=== PATIENT | female | born 1950 | race Caucasian/White ===

== ENCOUNTER 2017-10-10 12:29 | Observation (INO) | payer OTHER ==
[2017-10-10 12:34] VITALS: BMI 28.3
[2017-10-10] MEDS ORDERED: ONDANSETRON 4 MG/2 ML VIAL ONE (12:42)
[2017-10-10] MEDS ORDERED: SODIUM CHLORIDE 0.9% 1000 ML INFUS.BAG IV ONE ×2 (12:46→13:55)
[2017-10-10] MEDS ORDERED: ONDANSETRON 4 MG/2 ML VIAL IVPUSH ONE (12:46)
--- NOTE | 2017-10-10 13:12 | PDOC ---
History of Present Illness - General Chief Complaint: Nausea/Vomiting Stated Complaint: NAUSEA/VOMITING Time Seen by Provider: 10/10/17 12:32 History Source: Patient Exam Limitations: No Limitations - History of Present Illness Initial Comments: 10/10/17 13:04 [id number] with a history of hypertension known meningioma which has been stable for the last 3 years and migraines here today complaining of headache and persistent nausea and vomiting. Patient states that her headache started yesterday she was seen in urgent care last PM was given Toradol for her pain since then has had some persistent vomiting with mild resolution of her headache. Denies any fevers but may have had chills yesterday. 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 Past History - Past Medical History Allergies/Adverse Reactions: Allergies Allergy/AdvReac Type Severity Reaction Status Date / Time No Known Allergies Allergy Verified 10/10/17 12:30 Home Medications: Ambulatory Orders Metoprolol Succinate [Toprol Xl] 100 mg PO DAILY 10/10/17 COPD: No HTN: Yes - Suicide/Smoking/Psychosocial Hx Smoking History: Never smoked Hx Alcohol Use: No Drug/Substance Use Hx: No Substance Use Type: None Review of Systems - Review of Systems Constitutional: Yes: Chills. No: Diaphoresis HEENTM: No: Eye Pain Respiratory: No: Orthopnea, Shortness of Breath Cardiac (ROS): No: Chest Pain, Edema Musculoskeletal: No: Back Pain, Gout Neurological: Yes: Headache All Other Systems: Reviewed and Negative *Physical Exam - Vital Signs Last Vital Signs Temp Pulse Resp BP Pulse Ox 99.0 F 118 H 18 132/92 99 10/10/17 12:30 10/10/17 12:30 10/10/17 12:30 10/10/17 12:30 10/10/17 12:30 - Physical Exam General Appearance: Yes: Nourished Respiratory/Chest: positive: Lungs Clear, Normal Breath Sounds Cardiovascular: positive: Regular Rhythm, Regular Rate, S1, S2. negative: Edema Musculoskeletal: positive: Normal Inspection Extremity: positive: Normal Capillary Refill, Normal Inspection Integumentary: positive: Normal Color, Dry, Warm Neurologic: positive: graphic editor II-XII NML intact (he was using as a radiology with a call), Fully Oriented, Alert, Normal Mood/Affect, Motor Strength 09/30 ED Treatment Course - LABORATORY CBC & Chemistry Diagram: 10/10/17 12:46 10/10/17 12:51 - Medications Given in the ED: ED Medications Discontinued Medications Generic Name Dose Route Start Last Admin Trade Name Gabino PRN Reason Stop Dose Admin Ondansetron HCl 4 mg 10/10/17 12:46 10/10/17 12:51 Zofran Injection IVPUSH 10/10/17 12:47 4 mg ONCE ONE Administration Sodium Chloride 1,000 ml 10/10/17 12:46 10/10/17 12:51 Normal Saline - IV 10/10/17 12:47 1,000 ml ONCE ONE Administration Medical Decision Making - Medical Decision Making 10/10/17 13:19 67-year-old female history of migraines, meningioma, and hypertension here with headache which has resolved and persistent vomiting. Differential includes electrolyte abnormalities, persistent migrainous symptoms, dehydration, hyponatremia, infection such as UTI, viral gastritis patient denies vertigo symptoms and has a nontender abdomen on exam plan D had due to history of meningioma labs UA we'll treat with IV hydration and antiemetics and pain medication as needed 10/10/17 15:12 d/w with pt pcp dr. smith [phone]. no known h/o hyponatremia, usually around 141 or 142. no new medication. *DC/Admit/Observation/Transfer Diagnosis at time of Disposition: Hyponatremia - Discharge Dispostion Condition at time of disposition: Stable Decision to Admit order: Yes - Referrals Referrals: Parish Smith [Primary Care Provider] - - Patient Instructions - Post Discharge Activity
[2017-10-10 13:27] LABS: BASO % 1.7 % (0-2.0); EOS % 0.2 % (0-4.5); HEMATOCRIT 45.9 % (32.4-45.2); HEMOGLOBIN 16.2 GM/dl (10.7-15.3); MCH 31.1 pg (25.7-33.7); MCHC 35.4 g/dl (32.0-36.0); MEAN CELL VOLUME 87.9 fl (80-96); MEAN PLT VOLUME 10.5 fl (7.5-11.1); MONO % 6.4 % (3.8-10.2); NEUT % 76.7 % (42.8-82.8); PLATELET COUNT 232 K/MM3 (134-434); RBC 5.22 M/mm3 (3.60-5.2); RDW 12.9 % (11.6-15.6); WHITE BLOOD COUNT 11.5 K/mm3 (4.0-10.8)
[2017-10-10] MEDS ORDERED: FAMOTIDINE IV 20 MG/12 ML VIAL IVPUSH ONE (13:32)
[2017-10-10] MEDS ORDERED: LIDOCAINE VISCOUS 2% ORAL/TOP 20 ML UNIT-DOSE CUP MM ONE (13:33)
[2017-10-10] MEDS ORDERED: MAG HYDROX/AL HYDROX/SIMETH 30 ML UNIT-DOSE CUP PO ONE (13:33)
[2017-10-10] MEDS ORDERED: FAMOTIDINE 20 MG/50 ML IVPB 20 MG/50 ML MG IVPB ONE ×2 (13:34→20:33)
[2017-10-10] MEDS ORDERED: MAG HYDROX/AL HYDROX/SIMETH 30 ML UNIT-DOSE CUP ONE (13:37)
[2017-10-10] MEDS ORDERED: LIDOCAINE VISCOUS 2% ORAL/TOP 20 ML UNIT-DOSE CUP ONE (13:37)
[2017-10-10 13:43] LABS: ALBUMIN 4.8 g/dl (3.5-5.0); ALK PHOS 87 U/L (32-92); ANION GAP 8 (8-16); BILIRUBIN,TOTAL 0.9 mg/dl (0.2-1.0); BLOOD UREA NITROGEN 26 mg/dl (7-18); CALCIUM 10.8 mg/dl (8.4-10.2); CHLORIDE 105 mmol/L (98-107); CO2 16 mmol/L (22-28); CREATININE 0.9 mg/dl (0.6-1.3); GLUCOSE,RANDOM 135 mg/dl (74-106); POTASSIUM 4.2 mmol/L (3.5-5.1); SGOT/AST 75 U/L (10-42); SGPT/ALT 56 U/L (10-40); SODIUM 129 mmol/L (136-145); TOT PROT 8.5 g/dl (6.4-8.3)
[2017-10-10 14:23] LABS: LIPASE 152 U/L (73-393)
[2017-10-10] MEDS ORDERED: METOCLOPRAMIDE HCL INJECTION 10 MG/2 ML VIAL IVPUSH ONE (14:51)
[2017-10-10 16:44] LABS: URINE APPEARANCE Clear; URINE BILIRUBIN 2+ (NEGATIVE); URINE GLUCOSE (UA) Negative (NEGATIVE); URINE KETONE 2+ (NEGATIVE); URINE LEUK ESTERASE Negative (NEGATIVE); URINE NITRITE Negative (NEGATIVE); URINE UROBILINOGEN 0.2 (0.2-1.0)
[2017-10-10 16:46] LABS: URINE COLOR YELLOW; URINE PROTEIN 2+ (NEGATIVE)
[2017-10-10 17:38] LABS: EPI CELLS FEW /HPF; URINE BACTERIA FEW /hpf (NEGATIVE)
[2017-10-10 20:26] LABS: ANION GAP 2 (8-16); BLOOD UREA NITROGEN 24 mg/dl (7-18); CALCIUM 9.2 mg/dl (8.4-10.2); CHLORIDE 112 mmol/L (98-107); CO2 18 mmol/L (22-28); GLUCOSE,RANDOM 104 mg/dl (74-106); POTASSIUM 3.3 mmol/L (3.5-5.1); SODIUM 132 mmol/L (136-145)
[2017-10-10 20:38] LABS: CREATININE < 0.8 mg/dl (0.6-1.3)
--- NOTE | 2017-10-10 20:39 | HP ---
CHIEF COMPLAINT: Migraine Headache, Vomiting PCP: Dr. Espinosa ([phone]) HISTORY OF PRESENT ILLNESS: 67 y/o woman with a PMH of HTN, Migraines, Meningoma. Who presents to the ED with headache and intractable vomiting. Patient was seen in Urgent Care for same given Toradol with some relief. Patient reports taking Ergot and Firocet without relief. Patient reports not having a Migraine for 6-7 yrs ago. She reports having an Aura, floating objects, squiggly shapes with her vision. Patient reports the ORTEGA has resolved, but still feels nauseous and has severe heartburn. Patient also reports having 2 episodes of palpitations in the morning , then 4pm evening resolved. Patient denies numbness, tingling, slurred speech, facial droop. Patient denies fever, chills, cough, SOB, CP, diarrhea, dysuria. ER course was notable for: (1) Head CT- neg ICH, mass or lesion (2) NA 129~ 132 after 2LNS (3) EKG- 88bpm, left anterior fasculiar block QT/QTc 348/445 Recent Travel: None PAST MEDICAL HISTORY: See HPI PAST SURGICAL HISTORY: Breast Biopsy (Benign) Bunionectomy R-TKR R- Hand Sx Social History: Smoking: Former, quit > 20yrs Alcohol: None Drugs: None Resides at [facility] Family History: Father: Hodgkin Lymphoma, Alcoholism Mother: Myasthenia, Emphysema Maternal Grandmother: Cirrhosis Paternal Grandmother: [place] Paternal Grandfather: Stroke Daughter- Braca Gene- Braca Score 2 Allergies No Known Allergies Allergy (Verified 10/10/17 12:30) HOME MEDICATIONS: Home Medications Medication Instructions Recorded Metoprolol Succinate [Toprol Xl] 100 mg PO DAILY 10/10/17 REVIEW OF SYSTEMS CONSTITUTIONAL: Absent: fever, chills, diaphoresis, generalized malaise, fatigue, weight change , change in appetite HEENT: Absent: rhinorrhea, nasal congestion, throat pain, throat swelling, difficulty swallowing, mouth swelling, ear pain, eye pain, visual changes CARDIOVASCULAR: palpitations, irregular heart rate, lightheadedness Absent: chest pain, syncope, palpitations, irregular heart rate, lightheadedness , peripheral edema RESPIRATORY: Absent: cough, shortness of breath, dyspnea with exertion, orthopnea, wheezing, stridor, hemoptysis GASTROINTESTINAL: nausea, vomiting Absent: abdominal pain, abdominal distension, diarrhea, constipation, melena, hematochezia GENITOURINARY: Absent: dysuria, frequency, urgency, hesitancy, hematuria, flank pain, genital pain MUSCULOSKELETAL: Absent: myalgia, arthralgia, joint swelling, back pain, neck pain SKIN: Absent: rash, itching, pallor HEMATOLOGIC/IMMUNOLOGIC: Absent: easy bleeding, easy bruising, lymphadenopathy, frequent infections ENDOCRINE: Absent: unexplained weight gain, unexplained weight loss, heat intolerance, cold intolerance NEUROLOGIC: headache, photophobia Absent: focal weakness or paresthesias, dizziness, unsteady gait, seizure, mental status changes, bladder or bowel incontinence PSYCHIATRIC: Absent: anxiety, depression, suicidal or homicidal ideation, hallucinations. PHYSICAL EXAMINATION Vital Signs - 24 hr 10/10/17 10/10/17 10/10/17 12:30 14:31 16:16 Temperature 99.0 F 98.2 F Pulse Rate 118 H 74 Pulse Rate [ 73 Right] Respiratory 18 18 17 Rate Blood Pressure 132/92 122/72 Blood Pressure 159/99 [Right Arm] O2 Sat by Pulse 99 98 100 Oximetry (%) 10/10/17 16:59 Temperature Pulse Rate Pulse Rate [ 78 Right] Respiratory 17 Rate Blood Pressure Blood Pressure 154/92 [Right Arm] O2 Sat by Pulse 100 Oximetry (%) GENERAL: Awake, alert, and fully oriented, in no acute distress. HEAD: Normal with no signs of trauma. EYES: Pupils equal, round and reactive to light, extraocular movements intact, sclera anicteric, conjunctiva clear. No lid lag. EARS, NOSE, THROAT: Ears normal, nares patent, oropharynx clear without exudates. Dry mucous membranes. NECK: Normal range of motion, supple without lymphadenopathy, JVD, or masses. LUNGS: Breath sounds equal, clear to auscultation bilaterally. No wheezes, and no crackles. No accessory muscle use. HEART: Regular rate and rhythm, normal S1 and S2 without murmur, rub or gallop. ABDOMEN: Soft, nontender, not distended, hyperactive bowel sounds, no guarding, no rebound, no masses. No hepatomegaly or splenomegaly. MUSCULOSKELETAL: Normal range of motion at all joints. No bony deformities or tenderness. No CVA tenderness. UPPER EXTREMITIES: 2+ pulses, warm, well-perfused. No cyanosis. No clubbing. No peripheral edema. LOWER EXTREMITIES: 2+ pulses, warm, well-perfused. No calf tenderness. No peripheral edema. NEUROLOGICAL: Cranial nerves II-XII intact. Slurred speech. Gait not observed. PSYCHIATRIC: Cooperative. Good eye contact. Appropriate mood and affect. SKIN: Warm, dry, normal turgor, no rashes or lesions noted, normal capillary refill. Laboratory Results - last 24 hr 10/10/17 10/10/17 10/10/17 12:46 12:51 16:34 WBC 11.5 H RBC 5.22 H Hgb 16.2 H Hct 45.9 H MCV 87.9 MCH 31.1 MCHC 35.4 RDW 12.9 Plt Count 232 MPV 10.5 Neutrophils % 76.7 Lymphocytes % 15.0 Monocytes % 6.4 Eosinophils % 0.2 Basophils % 1.7 Sodium 129 L Potassium 4.2 Chloride 105 Carbon Dioxide 16 L Anion Gap 8 BUN 26 H Creatinine 0.9 Creat Clearance w eGFR > 60 Random Glucose 135 H Calcium 10.8 H Total Bilirubin 0.9 AST 75 H ALT 56 H Alkaline Phosphatase 87 Total Protein 8.5 H Albumin 4.8 Lipase 152 Urine Color Yellow Urine Appearance Clear Urine pH 6.0 Ur Specific [place] >= 1.030 H Urine Protein 2+ H Urine Glucose (UA) Negative Urine Ketones 2+ H Urine Blood 2+ H Urine Nitrite Negative Urine Bilirubin 2+ H Urine Urobilinogen 0.2 Ur Leukocyte Esterase Negative Urine RBC 5-10 Urine WBC 2-5 Ur Epithelial Cells Few Urine Bacteria Few ASSESSMENT/PLAN: 67 y/o woman PMH HTN, Migraine Headaches, Meningoma. Placed in Tele Observation for Hyponatremia, Palpitations, SOB. FEN PO Fluids, NS@30cc/hr (dehydration) Repleted Na Low Na Diet Code Status: Full Code Dispo: Requires Inpatient Care Problem List - Problem (1) Hyponatremia Assessment/Plan: - Likely secondary to volume depletion - 2L NS bolus given in ED - Sodium Deficit 366 meq - Goal Sodium Correction of 6-8meq/24 hrs - Monitor BMP - Monitor vitals - Fall Precautions Code(s): E87.1 - HYPO-OSMOLALITY AND HYPONATREMIA (2) Headache Assessment/Plan: - Likely secondary to Migranes vs Tumor vs Stroke - Cardiac monitoring - Head CT- neg ICH, mass or lesions - Seizure Precautions - Fall precautions - Continue gentle IVF - Orthostatics - Consider neurology Code(s): R51 - HEADACHE (3) Heart palpitations Assessment/Plan: - Likely secondary to Volume Depletion vs Missed Medication vs Infection - EKG- NSR w Left Anterior Fasicular Block - Cardiac Monitoring - Serial Enzymes - Appreciate Cardiology Consult - Echo- LSVF - Lipid Panel Code(s): R00.2 - PALPITATIONS (4) Elevated troponin Assessment/Plan: - Likely secondary to Ischemic demand vs Tachyarrhythmia vs ACS - Cardiac monitoring - Serial Enzymes - Appreciate Cardiology consult - Code(s): R74.8 - ABNORMAL LEVELS OF OTHER SERUM ENZYMES (5) Dizziness Assessment/Plan: - See Above - Orthostatics Code(s): R42 - DIZZINESS AND GIDDINESS (6) Benign meningioma Assessment/Plan: - no acute changes - Continue to monitor and treat with indications as needed Code(s): D32.0 - BENIGN NEOPLASM OF CEREBRAL MENINGES (7) DVT prophylaxis Assessment/Plan: - OB - SCDs - Consider AC if LOS > 48hrs Code(s): ATA0739 - Visit type - Emergency Visit Emergency Visit: Yes ED Registration Date: 10/10/17 Care time: The patient presented to the Emergency Department on the above date and was hospitalized for further evaluation of their emergent condition. - New Patient This patient is new to me today: Yes Date on this admission: 10/10/17 - Critical Care Critical Care patient: No Hospitalist Screening - Colonoscopy Questionnaire Colonoscopy Questionnaire: Colonoscopy Questionnaire - Patient: 50 - 75 years old and never had a screening colonoscopy: No History of colon or rectal polyps, or CA: No History of IBD, Crohn's disease or UC: No History of abdominal radiation therapy as a child: No - Relative: 1 with colon or rectal CA, or polyps at age 60 or younger: No Colon or rectal CA diagnosed at age 45 or younger: No Multiple relatives with colon or rectal CA: No - Outcome: Screening Result: Negative Screen
[2017-10-10] MEDS ORDERED: POTASSIUM CHLORIDE TABS 20 MEQ TABLET.ER (FP) PO ONE (21:45)
[2017-10-10] MEDS ORDERED: LIDOCAINE VISCOUS 2% ORAL/TOP 20 ML UNIT-DOSE CUP MM PRN (23:16)
[2017-10-11] MEDS ORDERED: MAG HYDROX/AL HYDROX/SIMETH -MYLANTA- ORAL SUSPENSION PO SCH
[2017-10-11] MEDS ORDERED: MELATONIN 5 MG TABLETS PO ONE (00:03)
[2017-10-11] MEDS ORDERED: MAG HYDROX/AL HYDROX/SIMETH 30 ML UNIT-DOSE CUP PO SCH (00:22)
[2017-10-11] MEDS: MAG HYDROX/AL HYDROX/SIMETH 30 ML UNIT-DOSE CUP PO SCH ×4 (00:29→18:12)
[2017-10-11] MEDS ORDERED: SODIUM CHLORIDE 1,000 ML IV SCH ×2 (02:15→02:19)
[2017-10-11] MEDS ORDERED: ASPIRIN 81 MG CHEWABLE TABLETS PO ONE (05:06)
--- NOTE | 2017-10-11 08:14 | PN ---
Physical Exam: SUBJECTIVE: Patient seen and examined, reports a burning sensation to throat and chest after eating breakfast, does reports palpations at 2200 yesterday evening that resolved spontaneously, patient denies any dizziness or shortness of breath. OBJECTIVE: Patient is a 67 y/o woman with a PMH of HTN, Migraines, Meningoma. Patient was admitted to observation telemetry for emergent condition. Vital Signs Period Temp Pulse Resp BP Sys/Mark Pulse Ox Last 24 Hr 98.2 F-99.1 F 71-118 16-18 122-159/72-99 95-100 GENERAL: The patient is awake, alert, and fully oriented, in no acute distress. HEAD: Normal with no signs of trauma. EYES: PERRL, extraocular movements intact, sclera anicteric, conjunctiva clear. No ptosis. ENT: Ears normal, nares patent, oropharynx clear without exudates, moist mucous membranes. NECK: Trachea midline, full range of motion, supple. LUNGS: Breath sounds equal, clear to auscultation bilaterally, no wheezes, no crackles, no accessory muscle use. HEART: Regular rate and rhythm, S1, S2 without murmur, rub or gallop. ABDOMEN: Soft, nontender, nondistended, normoactive bowel sounds, no guarding, no rebound, no hepatosplenomegaly, no masses. EXTREMITIES: 2+ pulses, warm, well-perfused, no edema. NEUROLOGICAL: Cranial nerves II through XII grossly intact. Normal speech, gait not observed. PSYCH: Normal mood, normal affect. SKIN: Warm, dry, normal turgor, no rashes or lesions noted Laboratory Results - last 24 hr CBC WBC 6.3 K/mm3 (4.0-10.8) D 10/11/17 07:45 RBC 4.49 M/mm3 (3.60-5.2) 10/11/17 07:45 Hgb 13.7 GM/dl (10.7-15.3) D 10/11/17 07:45 Hct 39.8 % (32.4-45.2) 10/11/17 07:45 MCV 88.5 fl (80-96) 10/11/17 07:45 MCH 30.6 pg (25.7-33.7) 10/11/17 07:45 MCHC 34.5 g/dl (32.0-36.0) 10/11/17 07:45 RDW 12.8 % (11.6-15.6) 10/11/17 07:45 Plt Count 155 K/MM3 (134-434) 10/11/17 07:45 MPV 9.6 fl (7.5-11.1) 10/11/17 07:45 Neutrophils % 60.2 % (42.8-82.8) 10/11/17 07:45 Lymphocytes % 27.1 % (8-40) 10/11/17 07:45 Monocytes % 11.0 % (3.8-10.2) H 10/11/17 07:45 Eosinophils % 1.1 % (0-4.5) 10/11/17 07:45 Basophils % 0.6 % (0-2.0) 10/11/17 07:45 CMP Sodium 136 mmol/L (136-145) 10/11/17 07:45 Potassium 3.8 mmol/L (3.5-5.1) 10/11/17 07:45 Chloride 111 mmol/L (98-107) H 10/11/17 07:45 Carbon Dioxide 22 mmol/L (22-28) D 10/11/17 07:45 Anion Gap 3 (8-16) L 10/11/17 07:45 BUN 19 mg/dl (7-18) H D 10/11/17 07:45 Creatinine < 0.8 mg/dl (0.6-1.3) 10/11/17 07:45 Creat Clearance w eGFR > 60 (>60) 10/11/17 07:45 Random Glucose 127 mg/dl (74-106) H D 10/11/17 07:45 Calcium 9.2 mg/dl (8.4-10.2) 10/11/17 07:45 Magnesium 2.0 mg/dL (1.8-2.4) 10/11/17 07:45 Total Bilirubin 1.0 mg/dl (0.2-1.0) 10/11/17 07:45 AST 45 U/L (10-42) H D 10/11/17 07:45 ALT 47 U/L (10-40) H 10/11/17 07:45 Alkaline Phosphatase 62 U/L (32-92) D 10/11/17 07:45 Creatine Kinase 47 IU/L (26-192) 10/11/17 07:45 Troponin I 0.13 ng/ml (0.00-0.06) H 10/11/17 07:45 Total Protein 5.7 g/dl (6.4-8.3) L D 10/11/17 07:45 Albumin 3.3 g/dl (3.5-5.0) L D 10/11/17 07:45 Triglycerides 92 mg/dl (35-160) 10/11/17 07:45 Cholesterol 218 mg/dl 10/11/17 07:45 Total LDL Cholesterol 138 mg/dl 10/11/17 07:45 HDL Cholesterol 62 mg/dl (29-89) 10/11/17 07:45 Lipase 152 U/L (73-393) 10/10/17 12:51 Laboratory Tests 10/10/17 10/11/17 22:50 07:45 Troponin I 0.26 H 0.13 H Active Medications Generic Name Dose Route Start Last Admin Trade Name Freq PRN Reason Stop Dose Admin Al Hydroxide/Mg Hydroxide 30 ml 10/11/17 00:30 10/11/17 06:07 Mylanta Oral Suspension - PO 30 ml Q6HPO ELLIOT Administration Aspirin 81 mg 10/12/17 10:00 Asa - PO DAILY [facility] Sodium Chloride 1,000 mls @ 30 mls/hr 10/11/17 02:19 10/11/17 02:44 Normal Saline - IV 30 mls/hr ASDIR ELLIOT Administration Lidocaine HCl 20 ml 10/10/17 23:16 Xylocaine 2% Viscous Oral - MM Q6HPO PRN ORAL PAIN/M[place]TH [place]ES Metoprolol Succinate 100 mg 10/11/17 10:00 Toprol Xl - PO DAILY ELLIOT imaging ekg 10/10/17: left anterior fasicular block head ct: no acute pathology, left parietal menigoma ASSESSMENT/PLAN: 1) cardiovascular hypertension - continue toprol b/p at goal - pending echo palpation - continous telemetry monitoring, no events noted elevated troponin - 1st troponin 0.26, 2nd troponin 0.13, downtrending, pending 3rd, likely secondary to ischemic demand - appreciate cardiology input 2) neuro migraine - hx of migraine headache, pt denies any headache at this time 3) GI GERD - start protonix with carafate - will require outpatient follow up with GI, pt has never had a colonscopy f/e/n hyponatremia - repeat serum sodium this AM WNL, hyponatremia secondary to volume depletion resolved after IV hydration low sodium diet ppx - protonix - oob dispo: requires telemetry obsv l Visit type - Emergency Visit Emergency Visit: Yes ED Registration Date: 10/10/17 Care time: The patient presented to the Emergency Department on the above date and was hospitalized for further evaluation of their emergent condition. - New Patient This patient is new to me today: Yes Date on this admission: 10/13/17 - Critical Care Critical Care patient: No - Discharge Referral Referred to [facility] No
[2017-10-11 08:37] LABS: BASO % 0.6 % (0-2.0); EOS % 1.1 % (0-4.5); HEMATOCRIT 39.8 % (32.4-45.2); HEMOGLOBIN 13.7 GM/dl (10.7-15.3); LYMPH % 27.1 % (8-40); MCH 30.6 pg (25.7-33.7); MCHC 34.5 g/dl (32.0-36.0); MEAN CELL VOLUME 88.5 fl (80-96); MEAN PLT VOLUME 9.6 fl (7.5-11.1); NEUT % 60.2 % (42.8-82.8); PLATELET COUNT 155 K/MM3 (134-434); RBC 4.49 M/mm3 (3.60-5.2); RDW 12.8 % (11.6-15.6); WHITE BLOOD COUNT 6.3 K/mm3 (4.0-10.8)
[2017-10-11 08:46] LABS: ALBUMIN 3.3 g/dl (3.5-5.0); ALK PHOS 62 U/L (32-92); ANION GAP 3 (8-16); BLOOD UREA NITROGEN 19 mg/dl (7-18); CALCIUM 9.2 mg/dl (8.4-10.2); CHLORIDE 111 mmol/L (98-107); CO2 22 mmol/L (22-28); GLUCOSE,RANDOM 127 mg/dl (74-106); POTASSIUM 3.8 mmol/L (3.5-5.1); SGOT/AST 45 U/L (10-42); SGPT/ALT 47 U/L (10-40); SODIUM 136 mmol/L (136-145); TOT PROT 5.7 g/dl (6.4-8.3)
[2017-10-11 08:52] LABS: CHOLESTEROL 218 mg/dl; HDL CHOLESTEROL 62 mg/dl (29-89); LDL CHOLESTEROL (ONLY DFH) 138 mg/dl; TRIGLYCERIDES 92 mg/dl (35-160)
[2017-10-11 09:11] LABS: CREATININE < 0.8 mg/dl (0.6-1.3)
[2017-10-11] MEDS: SUCRALFATE 1 GM/10 ML UNIT DOSE CUPS PO SCH ×4 (10:28→21:20)
[2017-10-11] MEDS ORDERED: PANTOPRAZOLE SODIUM 40 MG VIAL IVPUSH SCH (10:30)
[2017-10-11] MEDS ORDERED: SODIUM CHLORIDE 0.9%/KCL 20 MEQ/1,000 ML INFUS.BAG IV SCH (11:45)
--- NOTE | 2017-10-11 11:51 | EKG ---
Test Reason : Blood Pressure : / mmHG Vent. Rate : 088 BPM Atrial Rate : 088 BPM P-R Int : 138 ms QRS Dur : 096 ms QT Int : 368 ms P-R-T Axes : 025 -55 031 degrees QTc Int : 445 ms NORMAL SINUS RHYTHM LEFT ANTERIOR FASCICULAR BLOCK ABNORMAL ECG NO PREVIOUS ECGS AVAILABLE Confirmed by RAPHAEL BHATT, HUSSEIN ([id number]) on 10/11/2017 11:50:34 AM Referred By: ALEJADNRO NUÑEZ Confirmed By:HUSSEIN LIM MD
--- NOTE | 2017-10-11 13:35 | EKG ---
Test Reason : Blood Pressure : / mmHG Vent. Rate : 066 BPM Atrial Rate : 066 BPM P-R Int : 150 ms QRS Dur : 090 ms QT Int : 410 ms P-R-T Axes : 028 -43 008 degrees QTc Int : 429 ms NORMAL SINUS RHYTHM LEFT AXIS DEVIATION ABNORMAL ECG WHEN COMPARED WITH ECG OF 10-OCT-2017 12:42, NO SIGNIFICANT CHANGE WAS FOUND Confirmed by RAPHAEL BHATT, HUSSEIN ([id number]) on 10/11/2017 1:35:16 PM Referred By: MD WORRELL Confirmed By:HUSSEIN LIM MD
--- NOTE | 2017-10-11 16:00 | CON.CARD ---
Consult - History of Present Illness History of Present Illness: [id number] with a history of hypertension known meningioma which has been stable for the last 3 years and migraines here today complaining of headache and persistent nausea and vomiting. Patient states that her headache started yesterday she was seen in urgent care last PM was given Toradol for her pain since then has had some persistent vomiting with mild resolution of her headache. Denies any fevers but may have had chills yesterday. 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 - History Source History Provided By: Patient - Past Medical History ...: No - Alcohol/Substance Use Hx Alcohol Use: No - Smoking History Smoking history: Never smoked Home Medications - Allergies Allergies/Adverse Reactions: Allergies Allergy/AdvReac Type Severity Reaction Status Date / Time No Known Allergies Allergy Verified 10/10/17 12:30 - Home Medications Home Medications: Ambulatory Orders Metoprolol Succinate [Toprol Xl] 100 mg PO DAILY 10/10/17 Review of Systems - Review of Systems Constitutional: reports: No Symptoms Eyes: reports: No Symptoms HENT: reports: No Symptoms Neck: reports: No Symptoms Cardiovascular: reports: No Symptoms Gastrointestinal: reports: No Symptoms Genitourinary: reports: No Symptoms Breasts: reports: No Symptoms Reported Musculoskeletal: reports: No Symptoms Integumentary: reports: No Symptoms Neurological: reports: No Symptoms Endocrine: reports: No Symptoms Hematology/Lymphatic: reports: No Symptoms Psychiatric: reports: No Symptoms Vital Signs: Vital Signs Temperature 98.6 F 10/11/17 14:00 Pulse Rate 65 10/11/17 14:00 Respiratory Rate 16 10/11/17 14:25 Blood Pressure 117/78 10/11/17 14:00 O2 Sat by Pulse Oximetry (%) 98 10/11/17 14:25 Constitutional: Yes: Well Nourished, No Distress, Calm Eyes: Yes: WNL, Conjunctiva Clear, EOM Intact HENT: Yes: WNL, Atraumatic, Normocephalic Neck: Yes: WNL, Supple, Trachea Midline Respiratory: Yes: WNL, Regular, CTA Bilaterally Gastrointestinal: Yes: WNL, Normal Bowel Sounds Renal/: Yes: WNL Cardiovascular: Yes: WNL, Regular Rate and Rhythm Musculoskeletal: Yes: WNL Extremities: Yes: WNL Integumentary: Yes: WNL Neurological: Yes: WNL, Alert, Oriented ...Motor Strength: WNL Psychiatric: Yes: WNL, Alert, Oriented - Other Data Labs, Other Data: CBC, BMP 10/11/17 07:45 10/11/17 07:45 Troponin, BNP 10/10/17 10/11/17 10/11/17 22:50 07:45 12:30 Troponin I 0.26 H 0.13 H 0.11 H Troponin, BNP 10/10/17 10/11/17 10/11/17 22:50 07:45 12:30 Troponin I 0.26 H 0.13 H 0.11 H Laboratory Tests 10/10/17 10/10/17 10/10/17 12:46 12:51 16:34 WBC 11.5 H RBC 5.22 H Hgb 16.2 H Hct 45.9 H MCV 87.9 MCH 31.1 MCHC 35.4 RDW 12.9 Plt Count 232 MPV 10.5 Neutrophils % 76.7 Lymphocytes % 15.0 Monocytes % 6.4 Eosinophils % 0.2 Basophils % 1.7 Sodium 129 L Potassium 4.2 Chloride 105 Carbon Dioxide 16 L Anion Gap 8 BUN 26 H Creatinine 0.9 Creat Clearance w eGFR > 60 Random Glucose 135 H Serum Osmolality Calcium 10.8 H Magnesium Total Bilirubin 0.9 AST 75 H ALT 56 H Alkaline Phosphatase 87 Creatine Kinase Troponin I Total Protein 8.5 H Albumin 4.8 Triglycerides Cholesterol Total LDL Cholesterol HDL Cholesterol Lipase 152 Urine Color Yellow Urine Appearance Clear Urine pH 6.0 Ur Specific [place] >= 1.030 H Urine Protein 2+ H Urine Glucose (UA) Negative Urine Ketones 2+ H Urine Blood 2+ H Urine Nitrite Negative Urine Bilirubin 2+ H Urine Urobilinogen 0.2 Ur Leukocyte Esterase Negative Urine RBC 5-10 Urine WBC 2-5 Ur Epithelial Cells Few Urine Bacteria Few Urine Osmolality Ur Random Sodium Ur Random Potassium Ur Random Chloride 10/10/17 10/10/17 10/10/17 20:00 22:50 22:50 WBC RBC Hgb Hct MCV MCH MCHC RDW Plt Count MPV Neutrophils % Lymphocytes % Monocytes % Eosinophils % Basophils % Sodium 132 L Potassium 3.3 L D Chloride 112 H Carbon Dioxide 18 L Anion Gap 2 L BUN 24 H Creatinine < 0.8 Creat Clearance w eGFR Random Glucose 104 D Serum Osmolality Calcium 9.2 Magnesium Total Bilirubin AST ALT Alkaline Phosphatase Creatine Kinase 65 Troponin I 0.26 H Total Protein Albumin Triglycerides Cholesterol Total LDL Cholesterol HDL Cholesterol Lipase Urine Color Urine Appearance Urine pH Ur Specific [place] Urine Protein Urine Glucose (UA) Urine Ketones Urine Blood Urine Nitrite Urine Bilirubin Urine Urobilinogen Ur Leukocyte Esterase Urine RBC Urine WBC Ur Epithelial Cells Urine Bacteria Urine Osmolality Ur Random Sodium Ur Random Potassium Ur Random Chloride 10/11/17 10/11/17 10/11/17 06:45 06:45 07:45 WBC 6.3 D RBC 4.49 Hgb 13.7 D Hct 39.8 MCV 88.5 MCH 30.6 MCHC 34.5 RDW 12.8 Plt Count 155 MPV 9.6 Neutrophils % 60.2 Lymphocytes % 27.1 Monocytes % 11.0 H Eosinophils % 1.1 Basophils % 0.6 Sodium Potassium Chloride Carbon Dioxide Anion Gap BUN Creatinine Creat Clearance w eGFR Random Glucose Serum Osmolality Calcium Magnesium Total Bilirubin AST ALT Alkaline Phosphatase Creatine Kinase Troponin I Total Protein Albumin Triglycerides Cholesterol Total LDL Cholesterol HDL Cholesterol Lipase Urine Color Urine Appearance Urine pH Ur Specific [place] Urine Protein Urine Glucose (UA) Urine Ketones Urine Blood Urine Nitrite Urine Bilirubin Urine Urobilinogen Ur Leukocyte Esterase Urine RBC Urine WBC Ur Epithelial Cells Urine Bacteria Urine Osmolality 749 Ur Random Sodium 39 Ur Random Potassium 22.4 Ur Random Chloride 175 10/11/17 10/11/17 10/11/17 07:45 07:45 07:45 WBC RBC Hgb Hct MCV MCH MCHC RDW Plt Count MPV Neutrophils % Lymphocytes % Monocytes % Eosinophils % Basophils % Sodium 136 Potassium 3.8 Chloride 111 H Carbon Dioxide 22 D Anion Gap 3 L BUN 19 H D Creatinine < 0.8 Creat Clearance w eGFR > 60 Random Glucose 127 H D Serum Osmolality Calcium 9.2 Magnesium 2.0 Total Bilirubin 1.0 AST 45 H D ALT 47 H Alkaline Phosphatase 62 D Creatine Kinase 47 Troponin I 0.13 H Total Protein 5.7 L D Albumin 3.3 L D Triglycerides Cholesterol Total LDL Cholesterol HDL Cholesterol Lipase Urine Color Urine Appearance Urine pH Ur Specific [place] Urine Protein Urine Glucose (UA) Urine Ketones Urine Blood Urine Nitrite Urine Bilirubin Urine Urobilinogen Ur Leukocyte Esterase Urine RBC Urine WBC Ur Epithelial Cells Urine Bacteria Urine Osmolality Ur Random Sodium Ur Random Potassium Ur Random Chloride 10/11/17 10/11/17 10/11/17 07:45 07:45 12:30 WBC RBC Hgb Hct MCV MCH MCHC RDW Plt Count MPV Neutrophils % Lymphocytes % Monocytes % Eosinophils % Basophils % Sodium Potassium Chloride Carbon Dioxide Anion Gap BUN Creatinine Creat Clearance w eGFR Random Glucose Serum Osmolality 293 Calcium Magnesium Total Bilirubin AST ALT Alkaline Phosphatase Creatine Kinase Troponin I 0.11 H Total Protein Albumin Triglycerides 92 Cholesterol 218 Total LDL Cholesterol 138 HDL Cholesterol 62 Lipase Urine Color Urine Appearance Urine pH Ur Specific [place] Urine Protein Urine Glucose (UA) Urine Ketones Urine Blood Urine Nitrite Urine Bilirubin Urine Urobilinogen Ur Leukocyte Esterase Urine RBC Urine WBC Ur Epithelial Cells Urine Bacteria Urine Osmolality Ur Random Sodium Ur Random Potassium Ur Random Chloride 10/11/17 12:30 WBC RBC Hgb Hct MCV MCH MCHC RDW Plt Count MPV Neutrophils % Lymphocytes % Monocytes % Eosinophils % Basophils % Sodium Potassium Chloride Carbon Dioxide Anion Gap BUN Creatinine Creat Clearance w eGFR Random Glucose Serum Osmolality Calcium Magnesium Total Bilirubin AST ALT Alkaline Phosphatase Creatine Kinase 46 Troponin I Total Protein Albumin Triglycerides Cholesterol Total LDL Cholesterol HDL Cholesterol Lipase Urine Color Urine Appearance Urine pH Ur Specific [place] Urine Protein Urine Glucose (UA) Urine Ketones Urine Blood Urine Nitrite Urine Bilirubin Urine Urobilinogen Ur Leukocyte Esterase Urine RBC Urine WBC Ur Epithelial Cells Urine Bacteria Urine Osmolality Ur Random Sodium Ur Random Potassium Ur Random Chloride Imaging - Results Chest X-ray: Image Reviewed (no i/e) EKG: Image Reviewed (sr rep abn) Problem List - Problems (1) Benign meningioma Code(s): D32.0 - BENIGN NEOPLASM OF CEREBRAL MENINGES (2) DVT prophylaxis Code(s): DCY8195 - (3) Dizziness Code(s): R42 - DIZZINESS AND GIDDINESS (4) Elevated troponin Code(s): R74.8 - ABNORMAL LEVELS OF OTHER SERUM ENZYMES (5) Headache Code(s): R51 - HEADACHE (6) Heart palpitations Code(s): R00.2 - PALPITATIONS (7) Hyponatremia Code(s): E87.1 - HYPO-OSMOLALITY AND HYPONATREMIA Assessment/Plan positive tnis palpitation chest burning htn ECHO nl Plan MIBI ST in AM
[2017-10-12] MEDS: MAG HYDROX/AL HYDROX/SIMETH 30 ML UNIT-DOSE CUP PO SCH ×2 (00:18→05:43)
[2017-10-12 05:33] VITALS: BP 114/70; PULSE 77; TEMP 98.4
[2017-10-12 07:52] LABS: CHOLESTEROL 202 mg/dl; HDL CHOLESTEROL 57 mg/dl (29-89); TRIGLYCERIDES 92 mg/dl (35-160)
--- NOTE | 2017-10-12 07:53 | PN ---
Physical Exam: SUBJECTIVE: Patient seen and examined, patient denies any chest pain or shortness of breath, OBJECTIVE: Patient is a 67 y/o woman with a PMH of HTN, Migraines, Meningoma. Patient was admitted to observation telemetry for emergent condition. Vital Signs Period Temp Pulse Resp BP Sys/Mark Pulse Ox Last 24 Hr 98 F-99.1 F 65-77 16-18 110-136/70-85 95-98 GENERAL: The patient is awake, alert, and fully oriented, in no acute distress. HEAD: Normal with no signs of trauma. EYES: PERRL, extraocular movements intact, sclera anicteric, conjunctiva clear. No ptosis. ENT: Ears normal, nares patent, oropharynx clear without exudates, moist mucous membranes. NECK: Trachea midline, full range of motion, supple. LUNGS: Breath sounds equal, clear to auscultation bilaterally, no wheezes, no crackles, no accessory muscle use. HEART: Regular rate and rhythm, S1, S2 without murmur, rub or gallop. ABDOMEN: Soft, nontender, nondistended, normoactive bowel sounds, no guarding, no rebound, no hepatosplenomegaly, no masses. EXTREMITIES: 2+ pulses, warm, well-perfused, no edema. NEUROLOGICAL: Cranial nerves II through XII grossly intact. Normal speech, gait not observed. PSYCH: Normal mood, normal affect. SKIN: Warm, dry, normal turgor, no rashes or lesions noted Laboratory Results - last 24 hr 10/11/17 10/11/17 10/11/17 06:45 06:45 07:45 WBC 6.3 D RBC 4.49 Hgb 13.7 D Hct 39.8 MCV 88.5 MCH 30.6 MCHC 34.5 RDW 12.8 Plt Count 155 MPV 9.6 Neutrophils % 60.2 Lymphocytes % 27.1 Monocytes % 11.0 H Eosinophils % 1.1 Basophils % 0.6 Sodium Potassium Chloride Carbon Dioxide Anion Gap BUN Creatinine Creat Clearance w eGFR Random Glucose Serum Osmolality Calcium Magnesium Total Bilirubin AST ALT Alkaline Phosphatase Creatine Kinase Troponin I Total Protein Albumin Triglycerides Cholesterol Total LDL Cholesterol HDL Cholesterol TSH Urine Osmolality 749 Ur Random Sodium 39 Ur Random Potassium 22.4 Ur Random Chloride 175 10/11/17 10/11/17 10/11/17 07:45 07:45 07:45 WBC RBC Hgb Hct MCV MCH MCHC RDW Plt Count MPV Neutrophils % Lymphocytes % Monocytes % Eosinophils % Basophils % Sodium 136 Potassium 3.8 Chloride 111 H Carbon Dioxide 22 D Anion Gap 3 L BUN 19 H D Creatinine < 0.8 Creat Clearance w eGFR > 60 Random Glucose 127 H D Serum Osmolality Calcium 9.2 Magnesium 2.0 Total Bilirubin 1.0 AST 45 H D ALT 47 H Alkaline Phosphatase 62 D Creatine Kinase 47 Troponin I 0.13 H Total Protein 5.7 L D Albumin 3.3 L D Triglycerides Cholesterol Total LDL Cholesterol HDL Cholesterol TSH Urine Osmolality Ur Random Sodium Ur Random Potassium Ur Random Chloride 10/11/17 10/11/17 10/11/17 07:45 07:45 12:00 WBC RBC Hgb Hct MCV MCH MCHC RDW Plt Count MPV Neutrophils % Lymphocytes % Monocytes % Eosinophils % Basophils % Sodium Potassium Chloride Carbon Dioxide Anion Gap BUN Creatinine Creat Clearance w eGFR Random Glucose Serum Osmolality 293 Calcium Magnesium Total Bilirubin AST ALT Alkaline Phosphatase Creatine Kinase Troponin I Total Protein Albumin Triglycerides 92 Cholesterol 218 Total LDL Cholesterol 138 HDL Cholesterol 62 TSH 0.85 Urine Osmolality Ur Random Sodium Ur Random Potassium Ur Random Chloride 10/11/17 10/11/17 12:30 12:30 WBC RBC Hgb Hct MCV MCH MCHC RDW Plt Count MPV Neutrophils % Lymphocytes % Monocytes % Eosinophils % Basophils % Sodium Potassium Chloride Carbon Dioxide Anion Gap BUN Creatinine Creat Clearance w eGFR Random Glucose Serum Osmolality Calcium Magnesium Total Bilirubin AST ALT Alkaline Phosphatase Creatine Kinase 46 Troponin I 0.11 H Total Protein Albumin Triglycerides Cholesterol Total LDL Cholesterol HDL Cholesterol TSH Urine Osmolality Ur Random Sodium Ur Random Potassium Ur Random Chloride Laboratory Tests 10/10/17 10/11/17 10/11/17 22:50 07:45 12:30 Troponin I 0.26 H 0.13 H 0.11 H 10/12/17 07:10 Troponin I 0.06 Active Medications Generic Name Dose Route Start Last Admin Trade Name Freq PRN Reason Stop Dose Admin Al Hydroxide/Mg Hydroxide 30 ml 10/11/17 00:30 10/12/17 05:43 Mylanta Oral Suspension - PO 30 ml Q6HPO ELLIOT Administration Aspirin 81 mg 10/12/17 10:00 Asa - PO DAILY ELLIOT Potassium Chloride/Sodium Chloride 20 meq in 1,000 mls @ 42 mls/hr 10/11/17 11 :45 10/11/17 12:00 Ns+20 Meq Kcl - IV 42 mls/hr ASDIR ELLIOT Administration Lidocaine HCl 20 ml 10/10/17 23:16 Xylocaine 2% Viscous Oral - MM Q6HPO PRN ORAL PAIN/MOUTH SORES Metoprolol Succinate 100 mg 10/11/17 10:00 10/11/17 09:10 Toprol Xl - PO 100 mg DAILY ELLIOT Administration Pantoprazole Sodium 40 mg 10/11/17 10:30 10/11/17 10:28 Protonix Iv IVPUSH 40 mg DAILY ELLIOT Administration Sucralfate 1 gm 10/11/17 10:30 10/11/17 21:20 Carafate Oral Suspension - PO 1 gm QID ELLIOT Administration imaging ekg 10/10/17: left anterior fasicular block head ct: no acute pathology, left parietal menigoma ASSESSMENT/PLAN: 1) cardiovascular hypertension - hold toprol today for stress test, b/p at goal - echo LV wnl palpation - continous telemetry monitoring, no events noted elevated troponin - troponin downtrended, likely secondary to ischemic demand - cardiology consulted and following 2) neuro migraine - hx of migraine headache, pt denies any headache at this time 3) GI GERD - pt reports relief, continue protonix with carafate - will require outpatient follow up with GI, pt has never had a colonscopy f/e/n hyponatremia - resolved, hyponatremia secondary to volume depletion resolved after IV hydration low sodium diet ppx - protonix - oob dispo: requires telemetry obsv l Visit type - Emergency Visit Emergency Visit: Yes ED Registration Date: 10/10/17 Care time: The patient presented to the Emergency Department on the above date and was hospitalized for further evaluation of their emergent condition. - New Patient This patient is new to me today: No - Critical Care Critical Care patient: No - Discharge Referral Referred to [facility] Med P.C.: No
[2017-10-12] MEDS ORDERED: ASPIRIN 81 MG CHEWABLE TABLETS PO SCH (10:00)
[2017-10-12 10:19] LABS: CHOLESTEROL 207 mg/dl; HDL CHOLESTEROL 60 mg/dl (29-89); LDL CHOLESTEROL (ONLY DFH) 128 mg/dl; TRIGLYCERIDES 95 mg/dl (35-160)
--- NOTE | 2017-10-12 10:36 | PN ---
Progress Note, Physician Chief Complaint: Pt aA&Ox3; asymptomatic presently ( no chest pain; no headache) History of Present Illness: 67-year-old white Female with a history of hypertension, known meningioma which has been stable for the last 3 years, and migraines came here today complaining of headache and persistent nausea and vomiting. Patient states that her headache started yesterday she was seen in urgent care last PM was given Toradol for her pain since then has had some persistent vomiting with mild resolution of her headache. Denies any fevers but may have had chills yesterday. 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 - Current Medication List Current Medications: Active Medications Al Hydroxide/Mg Hydroxide (Mylanta Oral Suspension -) 30 ml PO Q6HPO [facility] Last Admin: 10/12/17 05:43 Dose: 30 ml Aspirin (Asa -) 81 mg PO DAILY [facility] Potassium Chloride/Sodium Chloride (Ns+20 Meq Kcl -) 20 meq in 1,000 mls @ 42 mls/hr IV ASDIR [facility] Last Admin: 10/11/17 12:00 Dose: 42 mls/hr Lidocaine HCl (Xylocaine 2% Viscous Oral -) 20 ml MM Q6HPO PRN PRN Reason: ORAL PAIN/MOUTH SORES Metoprolol Succinate (Toprol Xl -) 100 mg PO DAILY [facility] Last Admin: 10/11/17 09:10 Dose: 100 mg Pantoprazole Sodium (Protonix Iv) 40 mg IVPUSH DAILY [facility] Last Admin: 10/11/17 10:28 Dose: 40 mg Sucralfate (Carafate Oral Suspension -) 1 gm PO QID [facility] Last Admin: 10/11/17 21:20 Dose: 1 gm - Objective Vital Signs: Vital Signs Temperature 98.4 F 10/12/17 05:32 Pulse Rate 77 10/12/17 05:32 Respiratory Rate 18 10/12/17 08:31 Blood Pressure 114/70 10/12/17 05:32 O2 Sat by Pulse Oximetry (%) 95 10/12/17 05:32 Constitutional: Yes: Well Nourished, No Distress Eyes: Yes: WNL HENT: Yes: WNL Neck: Yes: WNL Cardiovascular: Yes: WNL Respiratory: Yes: WNL Gastrointestinal: Yes: WNL ...Rectal Exam: Yes: Deferred Genitourinary: Yes: Anuria, Urethral Discharge Musculoskeletal: Yes: WNL Extremities: Yes: WNL Edema: No Peripheral Pulses WNL: Yes Integumentary: Yes: WNL Neurological: Yes: WNL Psychiatric: Yes: WNL Labs: CBC, BMP 10/11/17 07:45 10/11/17 07:45 Problem List - Problems (1) Benign meningioma Code(s): D32.0 - BENIGN NEOPLASM OF CEREBRAL MENINGES (2) Dizziness Code(s): R42 - DIZZINESS AND GIDDINESS (3) Elevated troponin Assessment/Plan: Peak TNI 0.26; normal CK. Likely demand ischemia from a variety of sources, including pain/migraines, dehydration, arrhythmia, syncope and fall. Stress MIBI today: no evidence of myocardial ischemia on either EKG or nuclear imaging; no arrhytymias reported; normal LVEF. TSH WNL. LDL >100 mg/dL. From cardiac perspective, pt may be discharged home and followed as an outpatient. She has occasional palpitations and syncope, and may benefit from a long-term loop event recorder. Code(s): R74.8 - ABNORMAL LEVELS OF OTHER SERUM ENZYMES (4) Headache Assessment/Plan: f/u with neurologist Code(s): R51 - HEADACHE (5) Heart palpitations Code(s): R00.2 - PALPITATIONS (6) Hyperlipidemia Assessment/Plan: LDL 138 mg/dL. If exercise and diet modification does not lower it substatially, would start statin. Code(s): E78.5 - HYPERLIPIDEMIA, UNSPECIFIED
--- NOTE | 2017-10-13 10:10 | DS ---
Physical Exam: SUBJECTIVE: Patient seen and examined, denies any chest pain or shortness of breath, reports feeling well. OBJECTIVE: 67 y/o woman with a PMH of HTN, Migraines, Meningoma. Who presents to the ED with headache and intractable vomiting. Patient was seen in Urgent Care for same given Toradol with some relief. Patient reports taking Ergot and Firocet without relief. Patient reports not having a Migraine for 6-7 yrs ago. She reports having an Aura, floating objects, squiggly shapes with her vision. Patient reports the ORTEGA has resolved, but still feels nauseous and has severe heartburn. Patient also reports having 2 episodes of palpitations in the morning , then 4pm evening resolved. Patient denies numbness, tingling, slurred speech, facial droop. Patient denies fever, chills, cough, SOB, CP, diarrhea, dysuria. ER course was notable for: (1) Head CT- neg ICH, mass or lesion (2) NA 129~ 132 after 2LNS (3) EKG- 88bpm, left anterior fasculiar block QT/QTc 348/445 PHYSICAL EXAM GENERAL: The patient is awake, alert, and fully oriented, in no acute distress. HEAD: Normal with no signs of trauma. EYES: PERRL, extraocular movements intact, sclera anicteric, conjunctiva clear. ENT: Ears normal, nares patent, oropharynx clear without exudates, moist mucous membranes. NECK: Trachea midline, full range of motion, supple. LUNGS: Breath sounds equal, clear to auscultation bilaterally, no wheezes, no crackles, no accessory muscle use. HEART: Regular rate and rhythm, S1, S2 without murmur, rub or gallop. ABDOMEN: Soft, nontender, nondistended, normoactive bowel sounds, no guarding, no rebound, no hepatosplenomegaly, no masses. EXTREMITIES: 2+ pulses, warm, well-perfused, no edema. NEUROLOGICAL: Cranial nerves II through XII grossly intact. Normal speech, gait not observed. PSYCH: Normal mood, normal affect. SKIN: Warm, dry, normal turgor, no rashes or lesions noted. LABS Laboratory Results - last 24 hr 10/12/17 07:10 Creatine Kinase 43 Triglycerides 95 Cholesterol 207 Total LDL Cholesterol 128 HDL Cholesterol 60 CBC WBC 6.3 K/mm3 (4.0-10.8) D 10/11/17 07:45 RBC 4.49 M/mm3 (3.60-5.2) 10/11/17 07:45 Hgb 13.7 GM/dl (10.7-15.3) D 10/11/17 07:45 Hct 39.8 % (32.4-45.2) 10/11/17 07:45 MCV 88.5 fl (80-96) 10/11/17 07:45 MCH 30.6 pg (25.7-33.7) 10/11/17 07:45 MCHC 34.5 g/dl (32.0-36.0) 10/11/17 07:45 RDW 12.8 % (11.6-15.6) 10/11/17 07:45 Plt Count 155 K/MM3 (134-434) 10/11/17 07:45 MPV 9.6 fl (7.5-11.1) 10/11/17 07:45 Neutrophils % 60.2 % (42.8-82.8) 10/11/17 07:45 Lymphocytes % 27.1 % (8-40) 10/11/17 07:45 Monocytes % 11.0 % (3.8-10.2) H 10/11/17 07:45 Eosinophils % 1.1 % (0-4.5) 10/11/17 07:45 Basophils % 0.6 % (0-2.0) 10/11/17 07:45 CMP Sodium 136 mmol/L (136-145) 10/11/17 07:45 Potassium 3.8 mmol/L (3.5-5.1) 10/11/17 07:45 Chloride 111 mmol/L (98-107) H 10/11/17 07:45 Carbon Dioxide 22 mmol/L (22-28) D 10/11/17 07:45 Anion Gap 3 (8-16) L 10/11/17 07:45 BUN 19 mg/dl (7-18) H D 10/11/17 07:45 Creatinine < 0.8 mg/dl (0.6-1.3) 10/11/17 07:45 Creat Clearance w eGFR > 60 (>60) 10/11/17 07:45 Random Glucose 127 mg/dl (74-106) H D 10/11/17 07:45 Serum Osmolality 293 mosm/kg (278-305) 10/11/17 07:45 Calcium 9.2 mg/dl (8.4-10.2) 10/11/17 07:45 Magnesium 2.0 mg/dL (1.8-2.4) 10/11/17 07:45 Total Bilirubin 1.0 mg/dl (0.2-1.0) 10/11/17 07:45 AST 45 U/L (10-42) H D 10/11/17 07:45 ALT 47 U/L (10-40) H 10/11/17 07:45 Alkaline Phosphatase 62 U/L (32-92) D 10/11/17 07:45 Creatine Kinase 43 IU/L (26-192) 10/12/17 07:10 Troponin I 0.06 ng/ml (0.00-0.06) 10/12/17 07:10 Total Protein 5.7 g/dl (6.4-8.3) L D 10/11/17 07:45 Albumin 3.3 g/dl (3.5-5.0) L D 10/11/17 07:45 Triglycerides 95 mg/dl (35-160) 10/12/17 07:10 Cholesterol 207 mg/dl 10/12/17 07:10 Total LDL Cholesterol 128 mg/dl 10/12/17 07:10 HDL Cholesterol 60 mg/dl (29-89) 10/12/17 07:10 Lipase 152 U/L (73-393) 10/10/17 12:51 TSH 0.85 uIU/ml (0.358-3.74) 10/11/17 12:00 imaging ekg 10/10/17: left anterior fasicular block head ct: no acute pathology, left parietal menigoma myocardial perfusion scan: normal exercise stress test, normal myocardial perfusion HOSPITAL COURSE: Date of Admission:10/10/17 Date of Discharge: 10/13/17 Minutes to complete discharge: 45 Discharge Summary Reason For Visit: HYPONATRENIA Condition: Stable - Instructions Diet, Activity, Other Instructions: resume low sodium bland diet continue all medications as prescribed please follow up with GI within 2 weeks if any new or persistent symptoms develop please return to the emergency department Please follow up with cardiology for a long-term loop event recorder. Referrals: Parish Espinosa [Primary Care Provider] - Jose Ramos MD [Staff Physician] - 2 Weeks Diego Lockhart MD [Staff Physician] - Disposition: HOME - Home Medications Comprehensive Discharge Medication List: Ambulatory Orders RX: Metoprolol Succinate [Toprol Xl] 100 mg PO DAILY 10/10/17 Pantoprazole Sodium [Protonix] 40 mg PO DAILY #30 tablet. 10/12/17 RX: Aspirin [ASA -] 81 mg PO DAILY tab.chew 10/12/17 - Discharge Referral Referred to [facility] Med P.C.: No
== END 2017-10-12 17:35 | disposition home or self-care (01) ==
LOC: FER 12:29 → FM/S 16:16
PROVIDERS: ADMIT Internal Medicine; ATTEND Nurse Practitioner Family
PROC: 3E033GC Introduction of Other Therapeutic Substance into Peripheral Vein, Percutaneous Approach (ICD-10-PCS; principal; 2017-10-10)
PROC: 3E0337Z Introduction of Electrolytic and Water Balance Substance into Peripheral Vein, Percutaneous Approach (ICD-10-PCS; 2017-10-10)
DX: E87.1 Hypo-osmolality and hyponatremia (principal); I10 Essential (primary) hypertension; R00.2 Palpitations; R51 Headache; R77.8 Other specified abnormalities of plasma proteins; D32.0 Benign neoplasm of cerebral meninges; R42 Dizziness and giddiness; K21.9 Gastro-esophageal reflux disease without esophagitis; Z86.69 Personal history of other diseases of the nervous system and sense organs
CPT/HCPCS: 36415; 70450-TC; 71046-TC-FY; 78452-TC; 80048; 80053; 80061; 81003; 81015; 82436; 82550; 83690; 83721; 83735; 83930; 83935; 84133; 84300; 84436; 84443; 84484; 85025; 93005; 93017; 93306-TC; 96365; 96375; 99284-25; A9502; G0378; J7030

== ENCOUNTER 2018-04-04 07:24 | Day surgery (SDC) | payer OTHER ==
[2018-04-03 13:08] VITALS: BMI 27.4
[2018-04-04] MEDS ORDERED: PROPOFOL 20 ML ONE ×2 (08:19)
[2018-04-04] MEDS ORDERED: LIDOCAINE HCL/PF 2% SDV 5ML VIAL ONE (08:19)
[2018-04-04 09:01] VITALS: TEMP 98.2
[2018-04-04 09:27] VITALS: BP 148/72; PULSE 66
== END 2018-04-04 09:29 | disposition home or self-care (01) ==
LOC: FASU-ENDO 07:24
PROVIDERS: ATTEND Internal Medicine Gastroenterology
PROC: 0DJD8ZZ Inspection of Lower Intestinal Tract, Via Natural or Artificial Opening Endoscopic (ICD-10-PCS; principal; 2018-04-04 08:00)
DX: Z12.11 Encounter for screening for malignant neoplasm of colon (principal)